=== PATIENT | female | born 1980 | race Caucasian/White ===

== ENCOUNTER 2019-02-15 15:33 | Emergency (ER) | payer BC ==
[~2019-02-15] VITALS: Ht 162.6 cm; Wt 94.4 kg
[2019-02-15 15:38] VITALS: BP 125/61
--- NOTE | 2019-02-15 15:45 | NUR ---
[facility]. PT DENIES SOB, HEART RRR, CAP REFIL <2 SEC, AND PT DENIES SOB, OR N/V
[2019-02-15 16:09] LABS: BASOPHILS % (AUTO) 0.5 % (0.0-2.0); EOSINOPHILS # (AUTO) 0.1 K/uL (0-0.4); EOSINOPHILS % (AUTO) 1.7 % (0.0-4.0); HEMATOCRIT 36.9 % (36-48); HEMOGLOBIN 12.1 g/dL (12.0-16.0); LYMPHOCYTES # (AUTO) 2.5 K/uL (2.5-16.5); LYMPHOCYTES % (AUTO) 32.3 % (20.5-51.1); MEAN CORPUSCULAR HEMOGLOBIN 29 pg (27-31); MEAN CORPUSCULAR HGB CONC 33 g/dL (33-37); MEAN CORPUSCULAR VOLUME 88.5 fL (80-94); MONOCYTES # (AUTO) 0.6 K/uL (0.8-1.0); MONOCYTES % (AUTO) 7.7 % (1.7-9.3); NEUTROPHILS # (AUTO) 4.5 K/uL (1.8-7.7); NEUTROPHILS % (AUTO) 57.8 % (42.2-75.2); PLATELET COUNT (AUTO) 421 K/uL (140-450); RED BLOOD CELL COUNT(AUTO) 4.17 MIL/uL (4.20-5.40); RED CELL DISTRIBUTION WIDTH 13.6 % (11.6-13.7); WHITE BLOOD COUNT (AUTO) 7.8 K/uL (4.8-10.8)
[2019-02-15 16:22] LABS: ANION GAP 13.6 (8-16); CARBON DIOXIDE 26.4 mmol/L (21-32); CREATININE 0.8 mg/dL (0.6-1.3)
[2019-02-15 16:27] LABS: ALBUMIN 3.2 g/dL (3.4-5.0); TOTAL BILIRUBIN 0.3 mg/dL (0.0-1.0)
--- NOTE | 2019-02-15 18:03 | NUR ---
pt ambulated to bed 3
--- NOTE | 2019-02-15 18:33 | NUR ---
38F C/O CHEST PAIN X3 WEEKS. PT REPORTS CONSTANT LT SIDED PRESSURE PAIN AT 7/10 WITH OCASIONAL NUMBNESS IN BL HANDS. DENIES SOB. LUNGS CTAB. RRR. NO S/S DISTRESS. AOX4. BEDRAILS UP X1, BED LOCKED AND LOW. ERMD TO EVAL PATIENT. MEDHX:DENIES RX:ADVIL
--- NOTE | 2019-02-15 19:12 | NUR ---
Pt report given to DAVID. Transfer of care at this time. PT IN STABLE CONDITION.
[2019-02-15] MEDS ORDERED: IBUPROFEN 400 MG TAB PO ONE (19:55)
[2019-02-15] MEDS ORDERED: LORazepam 1 MG TAB PO ONE (19:55)
[2019-02-15 20:47] VITALS: BP 117/61
--- NOTE | 2019-02-15 20:47 | NUR ---
Patient discharged with v/s stable. Written and verbal after care instructions given and explained. Patient verbalized understanding. Ambulatory with steady gait. All questions addressed prior to discharge. Advised to follow up with PMD.
== END 2019-02-15 20:47 | disposition home or self-care (01) ==
LOC: MED 15:33
DX: F41.9 Anxiety disorder, unspecified (principal); K21.9 Gastro-esophageal reflux disease without esophagitis
CPT/HCPCS: 36415; 71045; 80053; 81025; 83690; 84484; 85025; 93005; 99284